=== PATIENT | male | born 1955 | race Caucasian/White ===

== ENCOUNTER 2019-05-17 11:38 | Emergency (ER) | payer MEDICAID ==
[2019-05-17 11:45] VITALS: BP 157/85; PULSE 64; RESP 18; TEMP 98.1
[2019-05-17] MEDS ORDERED: LIDOCAINE 1% INJ 10MG/ML (20 ML MDV) SQ ONE (12:05)
--- NOTE | 2019-05-17 12:07 | ED ---
Wound/Laceration HPI - General Chief Complaint: Wound/Laceration Stated Complaint: Toe Lac Time Seen by Provider: 05/17/19 11:49 Source: patient Mode of arrival: ambulatory Limitations: no limitations - History of Present Illness Initial Comments: Patient is a 64-year-old male presenting to the emergency Department with complaints of a laceration on the bottom of left toe that happened prior to arrival. Patient states he stepped onto some stairs with a metal flashing that cut the bottom of his toe. Patient denies being on blood thinners. Bleeding is controlled at this time. Patient admits to tetanus vaccine approximately 3 years ago. Patient has no other complaints at this time. - Related Data Home Medications Medication Instructions Recorded Confirmed Atorvastatin [Lipitor] 10 mg PO DAILY 03/19/16 03/19/16 Previous Rx's Medication Instructions Recorded Cephalexin [Keflex] 500 mg PO Q6HR #40 cap 03/19/16 Hydrocodone/Acetaminophen [[place] 1 each PO Q6HR PRN #5 tab 03/19/16 5-325] Ibuprofen [Motrin] 600 mg PO Q6HR PRN #20 tab 03/19/16 Allergies Allergy/AdvReac Type Severity Reaction Status Date / Time No Known Allergies Allergy Verified 05/17/19 11:43 Review of Systems ROS Statement: Those systems with pertinent positive or pertinent negative responses have been documented in the HPI. ROS Other: All systems not noted in ROS Statement are negative. Past Medical History Past Medical History: Hyperlipidemia History of Any Multi-Drug Resistant Organisms: None Reported Past Surgical History: Appendectomy, Hernia Repair, Orthopedic Surgery Past Psychological History: No Psychological Hx Reported Smoking Status: Never smoker Past Alcohol Use History: Occasional Past Drug Use History: None Reported General Exam - General Exam Comments Initial Comments: GENERAL: Well-appearing, well-nourished and in no acute distress. HEAD: Atraumatic, normocephalic. EYES: Pupils equal round and reactive to light, extraocular movements intact, sclera anicteric, conjunctiva are normal. ENT: TMs normal, nares patent, oropharynx clear without exudates. Moist mucous membranes. NECK: Normal range of motion, supple without lymphadenopathy or JVD. LUNGS: Breath sounds clear to auscultation bilaterally and equal. No wheezes rales or rhonchi. HEART: Regular rate and rhythm without murmurs, rubs or gallops. ABDOMEN: Soft, nontender, normoactive bowel sounds. No guarding, no rebound. No masses appreciated. : Deferred EXTREMITIES: Normal range of motion, no pitting or edema. No clubbing or cyanosis. NEUROLOGICAL: Cranial nerves II through XII grossly intact. Normal speech, normal gait. PSYCH: Normal mood, normal affect. SKIN: Warm, Dry, normal turgor, no rashes. There is an approximately 3 cm laceration to the bottom of the left big toe, distal aspect, slightly U-shaped. Patient has full range of motion. No tendon involvement. Bleeding is controlled at this time. Limitations: no limitations Course Vital Signs 05/17/19 11:44 Temperature 98.1 F Pulse Rate 64 Respiratory 18 Rate Blood Pressure 157/85 O2 Sat by Pulse 97 Oximetry Procedures - Laceration Laceration #1 Consent Obtained: verbal consent Indication: laceration Site: lower extremity (Bottom of the left great toe) Size (cm): 3 Description: linear (Slightly curved) Depth: simple, single layer Anesthetic Used: lidocaine 1% Anesthesia Technique: local infiltration Amount (mls): 5 Pre-repair: irrigated extensively Type of Sutures: nylon Size of Sutures: 5-0 Number of Sutures: 7 Technique: simple, interrupted Patient Tolerated Procedure: well Medical Decision Making - Medical Decision Making Patient is a 64-year-old male presenting with a 3cm laceration to the bottom of his left great toe that happened prior to arrival. Patient stepped on the top of a stair with a bent metal flashing that cut his toe. Patient admits to tetanus vaccine approximately 3 years ago. Bleeding is controlled this time. Wound was soaked in Betadine solution. Laceration was repaired with 7, 5-0 sutures. Patient tolerated procedure well. Topical antibiotic was applied along with a bandage. Patient will have sutures removed in 10-12 days. Return parameters were discussed with the patient he verbalizes understanding. Patient is stable for discharge at this time. Case discussed with Dr. Hdz. Disposition Clinical Impression: Laceration of left great toe w/o foreign body w/o damage to nail Disposition: HOME SELF-CARE Condition: Stable Instructions (If sedation given, give patient instructions): Care For Your Stitches (ED), Laceration (ED) Additional Instructions: Please return to the Emergency Department if symptoms worsen or any other concerns. Sutures need to be removed in 10-12 days. Is patient prescribed a controlled substance at d/c from ED?: No Referrals: Mj Qureshi DO [Primary Care Provider] - 1-2 days
== END 2019-05-17 13:08 | disposition home or self-care (01) ==
LOC: EC 11:38
DX: S91.112A Laceration without foreign body of left great toe without damage to nail, initial encounter (principal); E78.5 Hyperlipidemia, unspecified; Z79.899 Other long term (current) drug therapy; W26.9XXA Contact with unspecified sharp object(s), initial encounter
CPT/HCPCS: 99282; 12002; J2001